=== PATIENT | female | born 1940 | race Caucasian/White ===

== ENCOUNTER 2017-06-10 09:15 | Inpatient (IN) | payer OTHER ==
[2017-06-10] MEDS ORDERED: SODIUM CHLORIDE 0.9% 500 ML 500 ML IV ONE ×2 (09:35→13:18)
[2017-06-10] MEDS ORDERED: PROCHLORPERAZINE EDISYLATE 5 MG/ML SOL IM ONE (09:37)
[2017-06-10] MEDS ORDERED: PROCHLORPERAZINE EDISYLATE 5 MG/ML SOL ONE (09:38)
[2017-06-10 09:39] LABS: BASOPHILS % (AUTO) 1 % (0-3); EOSINOPHILS % (AUTO) 4 % (0-9); HEMATOCRIT 37 % (35-47); MEAN CORPUSCULAR HGB CONC 34.6 gm/dl (32.0-36.0); MEAN CORPUSCULAR VOLUME 91 fL (81-99); MONOCYTES % (AUTO) 6.4 % (0-12); NEUTROPHILS % (AUTO) 39.3 % (37-80)
[2017-06-10 09:50] LABS: ALBUMIN 3.4 gm/dl (3.4-5.0); CALCIUM 8.9 mg/dl (8.5-10.1); POTASSIUM 3.5 mMol/L (3.5-5.1)
[2017-06-10 10:53] LABS: APPEARANCE,URINE Clear; BILIRUBIN,URINE NEGATIVE (NEGATIVE); COLOR,URINE Yellow; GLUCOSE, URINE (UA) NEGATIVE (NEGATIVE); KETONES,URINE NEGATIVE (NEGATIVE); LEUKOCYTE ESTERASE ,URINE TRACE (NEGATIVE); NITRATE,URINE POSITIVE (NEGATIVE); OCCULT BLOOD,URINE NEGATIVE (NEG-TRACE); UROBILINOGEN,URINE 0.2 (0.2-1.0 EU)
[2017-06-10 11:04] LABS: RBC,URINE NEGATIVE (0-3AV/HPF)
[2017-06-10] MEDS ORDERED: HYDROMORPHONE HCL 2 MG/ML SOL IV ONE (12:47)
[2017-06-10] MEDS ORDERED: HYDROMORPHONE HCL 2 MG/ML SOL ONE ×2 (12:50→15:29)
[2017-06-10] MEDS: SODIUM CHLORIDE 0.9% FLUSH 10 ML SOL IV PRN ×2 (13:06→15:25)
[2017-06-10] MEDS ORDERED: ENOXAPARIN 100 MG SOL SC ONE ×2 (13:17→13:23)
[2017-06-10] MEDS ORDERED: HEPARIN SODIUM 5000 U/ML SOL IV ONE (14:56)
[2017-06-10] MEDS ORDERED: HEPARIN SODIUM 5000 U/ML SOL ONE (15:19)
[2017-06-10] MEDS ORDERED: HYDROMORPHONE HCL 2 MG/ML SOL IV PRN (15:33)
[2017-06-10] MEDS: HEPARIN PREMIX 25,000 U/250 ML SOL IV SCH (16:00)
[2017-06-10] MEDS ORDERED: TOLTERODINE TARTRATE 2 MG ER CAPSULE ONE (20:39)
[2017-06-10] MEDS: DEXTROSE/SALINE 0.45/KCL 20MEQ 1,000 ML/1,000 ML SOL IV SCH (20:52)
[2017-06-10] MEDS: SULFAMETHOXAZOLE/TRIMETHOPRI 800/160 MG PO SCH (20:52)
[2017-06-10] MEDS: TOLTERODINE TARTRATE 2 MG TAB PO SCH (20:53)
[2017-06-11] MEDS: DEXTROSE/SALINE 0.45/KCL 20MEQ 1,000 ML/1,000 ML SOL IV SCH ×2 (07:03→09:43)
[2017-06-11] MEDS: LEVOTHYROXINE SODIUM 137 MCG TAB PO SCH ×2 (07:04→09:31)
[2017-06-11 07:31] LABS: BASOPHILS % (AUTO) 1 % (0-3); EOSINOPHILS % (AUTO) 1 % (0-9); HEMATOCRIT 28 % (35-47); MEAN CORPUSCULAR VOLUME 90 fL (81-99); MONOCYTES % (AUTO) 7.2 % (0-12); NEUTROPHILS % (AUTO) 68.5 % (37-80)
[2017-06-11 07:44] LABS: CALCIUM 8.4 mg/dl (8.5-10.1); POTASSIUM 4.4 mMol/L (3.5-5.1)
[2017-06-11] MEDS ORDERED: LEVOTHYROXINE SODIUM 50 MCG TAB PO SCH (09:00)
[2017-06-11] MEDS ORDERED: FUROSEMIDE 20 MG TAB PO SCH (09:00)
[2017-06-11] MEDS: POTASSIUM CHLORIDE 10 MEQ CAPSULE PO SCH (09:29)
[2017-06-11] MEDS: TOLTERODINE TARTRATE 2 MG TAB PO SCH ×2 (09:30→20:41)
[2017-06-11] MEDS: SULFAMETHOXAZOLE/TRIMETHOPRI 800/160 MG PO SCH ×2 (09:30→20:42)
[2017-06-11] MEDS: FUROSEMIDE 40 MG TAB PO SCH ×2 (09:30→11:59)
[2017-06-11] MEDS: SERTRALINE HYDROCHLORIDE 50 MG TAB PO SCH (09:31)
[2017-06-11] MEDS: ALBUTEROL NEB SOL 2.5MG/3ML 1 VIAL SOL NEB SCH ×4 (09:35→20:42)
[2017-06-11] MEDS: HEPARIN PREMIX 25,000 U/250 ML SOL IV SCH (11:21)
[2017-06-11] MEDS: ACETAMINOPHEN 325 MG PO PRN (17:24)
[2017-06-12] MEDS: ALBUTEROL NEB SOL 2.5MG/3ML 1 VIAL SOL NEB SCH ×6 (01:36→21:48)
[2017-06-12] MEDS: LEVOTHYROXINE SODIUM 137 MCG TAB PO SCH (06:25)
[2017-06-12 07:02] LABS: CALCIUM 8.3 mg/dl (8.5-10.1); POTASSIUM 3.8 mMol/L (3.5-5.1)
[2017-06-12 07:21] LABS: BASOPHILS % (AUTO) 1 % (0-3); EOSINOPHILS % (AUTO) 1 % (0-9); HEMATOCRIT 24 % (35-47); MEAN CORPUSCULAR HGB CONC 34.6 gm/dl (32.0-36.0); MEAN CORPUSCULAR VOLUME 90 fL (81-99); MONOCYTES % (AUTO) 5.5 % (0-12); NEUTROPHILS % (AUTO) 58.1 % (37-80)
[2017-06-12] MEDS: HEPARIN PREMIX 25,000 U/250 ML SOL IV SCH (07:44)
[2017-06-12] MEDS: FUROSEMIDE 40 MG TAB PO SCH (09:24)
[2017-06-12] MEDS: SERTRALINE HYDROCHLORIDE 50 MG TAB PO SCH (09:25)
[2017-06-12] MEDS: POTASSIUM CHLORIDE 10 MEQ CAPSULE PO SCH (09:25)
[2017-06-12] MEDS: SULFAMETHOXAZOLE/TRIMETHOPRI 800/160 MG PO SCH ×2 (09:25→21:47)
[2017-06-12] MEDS: TOLTERODINE TARTRATE 2 MG TAB PO SCH ×2 (09:25→21:46)
[2017-06-12] MEDS: DEXTROSE/SALINE 0.45/KCL 20MEQ 1,000 ML/1,000 ML SOL IV SCH (09:35)
[2017-06-12] MEDS: ENOXAPARIN 100 MG SOL SC SCH ×2 (10:54→21:53)
[2017-06-12] MEDS: ACETAMINOPHEN 325 MG PO PRN (10:54)
[2017-06-12] MEDS: APAP/HYDROCODONE 325/5 TAB PO PRN ×2 (12:34→18:14)
[2017-06-12] MEDS ORDERED: WARFARIN SODIUM 2.5 MG TAB PO SCH (18:00)
[2017-06-12] MEDS ORDERED: SODIUM CHLORIDE 0.9% FLUSH 10 ML SOL IV PRN (19:47)
[2017-06-12] MEDS ORDERED: FUROSEMIDE 40 MG SOL IV SCH (20:00)
[2017-06-12] MEDS ORDERED: SODIUM CHLORIDE 0.9% 500 ML 500 ML IV SCH (20:00)
[2017-06-12 21:38] LABS: ABO O; ANTIBODY SCREEN Negative; RH TYPE Positive; UNIT TYPE O POSITIVE
[2017-06-12 21:40] LABS: UNIT TYPE O POSITIVE
[2017-06-12] MEDS: SODIUM CHLORIDE 0.9% FLUSH 10 ML SOL IV SCH (22:24)
[2017-06-13] MEDS: ALBUTEROL NEB SOL 2.5MG/3ML 1 VIAL SOL NEB SCH ×6 (00:23→20:46)
[2017-06-13] MEDS: LEVOTHYROXINE SODIUM 137 MCG TAB PO SCH (06:14)
[2017-06-13] MEDS: SODIUM CHLORIDE 0.9% FLUSH 10 ML SOL IV SCH ×4 (06:15→23:14)
[2017-06-13] MEDS: SULFAMETHOXAZOLE/TRIMETHOPRI 800/160 MG PO SCH (08:48)
[2017-06-13] MEDS: POTASSIUM CHLORIDE 10 MEQ CAPSULE PO SCH (08:48)
[2017-06-13] MEDS: SERTRALINE HYDROCHLORIDE 50 MG TAB PO SCH (08:49)
[2017-06-13] MEDS: FUROSEMIDE 40 MG TAB PO SCH (08:49)
[2017-06-13] MEDS: APAP/HYDROCODONE 325/5 TAB PO PRN ×3 (08:56→21:37)
[2017-06-13] MEDS: TOLTERODINE TARTRATE 2 MG ER CAPSULE PO SCH ×2 (09:45→20:50)
[2017-06-13] MEDS ORDERED: HYDROMORPHONE HCL 2 MG/ML SOL IV PRN ×2 (09:51→19:32)
[2017-06-13] MEDS: ENOXAPARIN 100 MG SOL SC SCH (12:25)
[2017-06-13] MEDS: WARFARIN SODIUM 5 MG TAB PO SCH (17:25)
[2017-06-13 18:41] LABS: BASOPHILS % (AUTO) 1 % (0-3); EOSINOPHILS % (AUTO) 4 % (0-9); HEMATOCRIT 26 % (35-47); MEAN CORPUSCULAR HGB CONC 34.6 gm/dl (32.0-36.0); MEAN CORPUSCULAR VOLUME 88 fL (81-99); MONOCYTES % (AUTO) 5.2 % (0-12); NEUTROPHILS % (AUTO) 58.1 % (37-80)
[2017-06-13 19:10] LABS: UNIT TYPE O POSITIVE
[2017-06-13 19:12] LABS: UNIT TYPE O POSITIVE
[2017-06-13] MEDS ORDERED: FUROSEMIDE 20mg SOL IV PRN (19:30)
[2017-06-13] MEDS ORDERED: SODIUM CHLORIDE 0.9% 500 ML 500 ML IV SCH (20:15)
[2017-06-13] MEDS: DOXYCYCLINE 100 MG TAB PO SCH (20:58)
[2017-06-13] MEDS: TOLTERODINE TARTRATE 2 MG TAB PO SCH (22:41)
[2017-06-14] MEDS: ALBUTEROL NEB SOL 2.5MG/3ML 1 VIAL SOL NEB SCH ×6 (01:07→20:21)
[2017-06-14] MEDS: SODIUM CHLORIDE 0.9% FLUSH 10 ML SOL IV SCH ×4 (02:38→20:31)
[2017-06-14] MEDS: APAP/HYDROCODONE 325/5 TAB PO PRN ×5 (05:08→20:25)
[2017-06-14] MEDS: LEVOTHYROXINE SODIUM 137 MCG TAB PO SCH (06:02)
[2017-06-14 07:22] LABS: BASOPHILS % (AUTO) 1 % (0-3); EOSINOPHILS % (AUTO) 4 % (0-9); HEMATOCRIT 29 % (35-47); MEAN CORPUSCULAR HGB CONC 35.5 gm/dl (32.0-36.0); MEAN CORPUSCULAR VOLUME 87 fL (81-99); NEUTROPHILS % (AUTO) 55.8 % (37-80)
[2017-06-14 07:23] LABS: CALCIUM 8.6 mg/dl (8.5-10.1); POTASSIUM 4.4 mMol/L (3.5-5.1)
[2017-06-14] MEDS: TOLTERODINE TARTRATE 2 MG ER CAPSULE PO SCH ×2 (08:41→20:23)
[2017-06-14] MEDS: SERTRALINE HYDROCHLORIDE 50 MG TAB PO SCH (08:42)
[2017-06-14] MEDS: FUROSEMIDE 40 MG TAB PO SCH (08:42)
[2017-06-14] MEDS: POTASSIUM CHLORIDE 10 MEQ CAPSULE PO SCH (08:42)
[2017-06-14] MEDS: DOXYCYCLINE 100 MG TAB PO SCH ×2 (08:42→20:24)
[2017-06-14] MEDS: ENOXAPARIN 100 MG SOL SC SCH (10:18)
[2017-06-14] MEDS: WARFARIN SODIUM 5 MG TAB PO SCH (17:52)
[2017-06-14] MEDS ORDERED: ENOXAPARIN 80 MG SOL SC SCH (22:15)
[2017-06-15] MEDS: ALBUTEROL NEB SOL 2.5MG/3ML 1 VIAL SOL NEB SCH ×6 (00:58→21:23)
[2017-06-15] MEDS: APAP/HYDROCODONE 325/5 TAB PO PRN ×4 (02:14→20:45)
[2017-06-15] MEDS: SODIUM CHLORIDE 0.9% FLUSH 10 ML SOL IV SCH ×3 (06:07→20:36)
[2017-06-15] MEDS: LEVOTHYROXINE SODIUM 137 MCG TAB PO SCH (06:07)
[2017-06-15 07:17] LABS: CALCIUM 8.4 mg/dl (8.5-10.1); POTASSIUM 4.2 mMol/L (3.5-5.1)
[2017-06-15] MEDS: DOXYCYCLINE 100 MG TAB PO SCH ×2 (08:27→20:35)
[2017-06-15] MEDS: TOLTERODINE TARTRATE 2 MG ER CAPSULE PO SCH ×2 (08:28→20:37)
[2017-06-15] MEDS: POTASSIUM CHLORIDE 10 MEQ CAPSULE PO SCH (08:29)
[2017-06-15] MEDS: FUROSEMIDE 40 MG TAB PO SCH (08:29)
[2017-06-15] MEDS ORDERED: ENOXAPARIN SODIUM 120 MG/0.8 ML SYRINGE SQ SCH (09:00)
[2017-06-15] MEDS: ENOXAPARIN 100 MG SOL SC SCH (09:19)
[2017-06-15] MEDS: SERTRALINE HYDROCHLORIDE 50 MG TAB PO SCH (09:20)
[2017-06-15] MEDS: SENNOSIDES A AND B 8.6 MG TAB PO SCH ×2 (16:23→20:35)
[2017-06-15] MEDS: WARFARIN SODIUM 5 MG TAB PO SCH (17:55)
[2017-06-16] MEDS: ALBUTEROL NEB SOL 2.5MG/3ML 1 VIAL SOL NEB SCH ×4 (01:27→13:06)
[2017-06-16] MEDS: LEVOTHYROXINE SODIUM 137 MCG TAB PO SCH (06:32)
[2017-06-16] MEDS: SODIUM CHLORIDE 0.9% FLUSH 10 ML SOL IV SCH ×2 (06:32→13:19)
[2017-06-16] MEDS ORDERED: TOLTERODINE TARTRATE 2 MG ER CAPSULE PO SCH (09:00)
[2017-06-16] MEDS: POTASSIUM CHLORIDE 10 MEQ CAPSULE PO SCH (09:25)
[2017-06-16] MEDS: SERTRALINE HYDROCHLORIDE 50 MG TAB PO SCH (09:25)
[2017-06-16] MEDS: SENNOSIDES A AND B 8.6 MG TAB PO SCH (09:25)
[2017-06-16] MEDS: DOXYCYCLINE 100 MG TAB PO SCH (09:25)
[2017-06-16] MEDS: FUROSEMIDE 40 MG TAB PO SCH (09:25)
[2017-06-16 09:28] VITALS: BP 115/71; RESP 18; TEMP 98.9
[2017-06-16] MEDS: APAP/HYDROCODONE 325/5 TAB PO PRN (09:29)
[2017-06-16] MEDS: ENOXAPARIN 100 MG SOL SC SCH (09:29)
[2017-06-16] MEDS: ACETAMINOPHEN 325 MG PO PRN (13:05)
[2017-06-16 13:19] VITALS: PULSE 91; O2SAT 96
== END 2017-06-16 14:30 | disposition home health service (06) | DRG 176 ==
LOC: ED 09:15 → ACUTE CARE 17:00 → UNDOADMIN 17:06 → ACUTE CARE 17:06
PROVIDERS: ADMIT Family Medicine; ATTEND Family Medicine
PROC: 30233N1 Transfusion of Nonautologous Red Blood Cells into Peripheral Vein, Percutaneous Approach (ICD-10-PCS; 2017-06-12)
PROC: F02Z1ZZ Dressing Assessment (ICD-10-PCS; principal; 2017-06-13)
PROC: F02Z0ZZ Bathing/Showering Assessment (ICD-10-PCS; 2017-06-13)
PROC: F02Z3ZZ Grooming/Personal Hygiene Assessment (ICD-10-PCS; 2017-06-13)
PROC: F01ZDFZ Gait and/or Balance Assessment using Assistive, Adaptive, Supportive or Protective Equipment (ICD-10-PCS; 2017-06-13)
PROC: F01ZBZZ Bed Mobility Assessment (ICD-10-PCS; 2017-06-13)
PROC: F01ZCZZ Transfer Assessment (ICD-10-PCS; 2017-06-13)
DX: I26.99 Other pulmonary embolism without acute cor pulmonale (principal); I95.9 Hypotension, unspecified; I82.411 Acute embolism and thrombosis of right femoral vein; I82.431 Acute embolism and thrombosis of right popliteal vein; I82.4Z1 Acute embolism and thrombosis of unspecified deep veins of right distal lower extremity; R06.89 Other abnormalities of breathing; N39.0 Urinary tract infection, site not specified; D62 Acute posthemorrhagic anemia; I82.401 Acute embolism and thrombosis of unspecified deep veins of right lower extremity; B96.1 Klebsiella pneumoniae [K. pneumoniae] as the cause of diseases classified elsewhere; S80.11XA Contusion of right lower leg, initial encounter; R40.2142 Coma scale, eyes open, spontaneous, at arrival to emergency department; W19.XXXA Unspecified fall, initial encounter; R40.2362 Coma scale, best motor response, obeys commands, at arrival to emergency department; R40.2242 Coma scale, best verbal response, confused conversation, at arrival to emergency department; B96.20 Unspecified Escherichia coli [E. coli] as the cause of diseases classified elsewhere
CPT/HCPCS: 36415; 70450; 71010; 71275; 73562; 73700; 80048; 80053; 81001; 82565; 83880; 85018; 85025; 85378; 85610; 85730; 86850; 86900; 86901; 86920; 87077; 87088; 87186; 93012; 94640; 96365; 96366; 96372; 96374; 96375; 99070; 99285; 99291; 99292; J0780; J1170; J1644; J1650; J1940; J7603; P9016; Q9967; L1830

== ENCOUNTER 2017-06-20 15:46 | Emergency (ER) | payer OTHER ==
[2017-06-20] MEDS ORDERED: SODIUM CHLORIDE 0.9% 1000ML 1,000 ML IV SCH (16:15)
[2017-06-20 16:18] VITALS: BP 109/65; PULSE 69; RESP 18; TEMP 98.8; O2SAT 94
[2017-06-20 16:35] LABS: BASOPHILS % (AUTO) 1 % (0-3); EOSINOPHILS % (AUTO) 3 % (0-9); HEMATOCRIT 35 % (35-47); MEAN CORPUSCULAR HGB CONC 32.9 gm/dl (32.0-36.0); MEAN CORPUSCULAR VOLUME 94 fL (81-99); MONOCYTES % (AUTO) 4.4 % (0-12); NEUTROPHILS % (AUTO) 53.8 % (37-80)
[2017-06-20 16:43] LABS: CALCIUM 8.7 mg/dl (8.5-10.1); POTASSIUM 4.2 mMol/L (3.5-5.1)
[2017-06-20] MEDS ORDERED: CEFTRIAXONE 1 GM PDS IM ONE (17:10)
[2017-06-20] MEDS ORDERED: CEFTRIAXONE 1 GM PDS ONE (17:12)
[2017-06-20] MEDS ORDERED: LIDOCAINE HCL 1% MPF SOL ONE (17:13)
== END 2017-06-20 18:10 | DRG 603 ==
LOC: ED 15:46
DX: L03.115 Cellulitis of right lower limb (principal); E03.9 Hypothyroidism, unspecified; M79.89 Other specified soft tissue disorders; Z86.711 Personal history of pulmonary embolism; Z86.718 Personal history of other venous thrombosis and embolism; R39.15 Urgency of urination
CPT/HCPCS: 36415; 80048; 83880; 85025; 85610; 87040; 99283; J0696; J2001

== ENCOUNTER 2017-08-10 07:41 | Emergency (ER) | payer OTHER ==
[2017-08-10 07:50] VITALS: RESP 20; TEMP 97
[2017-08-10] MEDS ORDERED: ENOXAPARIN 60 MG SOL SC ONE (09:28)
[2017-08-10] MEDS ORDERED: ENOXAPARIN 100 MG SOL SC ONE ×2 (09:28→09:30)
[2017-08-10 10:32] VITALS: BP 179/84; PULSE 66; O2SAT 95
== END 2017-08-10 10:10 | DRG 556 ==
LOC: ED 07:41
DX: M79.604 Pain in right leg (principal); Z79.01 Long term (current) use of anticoagulants
CPT/HCPCS: 36415; 73501; 73560; 73590; 85027; 85610; 85651; 99284; J1650